=== PATIENT | male | born 1995 | race Two or more races ===

== ENCOUNTER 2016-11-15 00:10 | Emergency (ER) | payer OTHER ==
--- NOTE | 2016-11-15 01:59 | ER Document Report ---
ED General <LEXUS HELLER - Last Filed: 11/15/16 06:41> <MADDY TAVERAS - Last Filed: 11/15/16 11:57> - General Chief Complaint: Psych Problem Stated Complaint: PSYCH EVALUATION Notes: Patient is a 21-year-old male presents with complaint of suicidal ideations. He is been very depressed for a long time. He is currently in the [employer]. [place] Informed him that he needs to "suck it up" and not offering any further help. He continues to feel worse and therefore came to our ER for help. He denies any plan to hurt himself. He denies any attempts at hurting himself recently. He is on medications for depression since and not helping. Denies recent fevers or infections. No other complaints at this time. (LEXUS HELLER) - Related Data Allergies/Adverse Reactions: No Known Allergies Allergy (Unverified 11/15/16 00:53) Past Medical History - Social History Smoking Status: Current Some Day Smoker Frequency of alcohol use: Occasional Drug Abuse: None Family History: Reviewed & Not Pertinent Past Surgical History: Reports: Hx Orthopedic Surgery - Immunizations Hx Diphtheria, Pertussis, Tetanus Vaccination: Yes <LEXUS HELLER - Last Filed: 11/15/16 06:41> Review of Systems <LEXUS HELLER - Last Filed: 11/15/16 06:41> <MADDY TAVERAS - Last Filed: 11/15/16 11:57> - Review of Systems Notes: My Normal Review Basic REVIEW OF SYSTEMS: CONSTITUTIONAL : Denies fever, chills, or sweats. Denies recent illness. EENT: Denies eye, ear, throat, or mouth pain or symptoms. Denies nasal or sinus congestion. CARDIOVASCULAR: Denies chest pain. RESPIRATORY: Denies cough, cold, or chest congestion. Denies shortness of breath, difficulty breathing, or wheezing. GASTROINTESTINAL: Denies abdominal pain. Denies nausea, vomiting, or diarrhea. Denies constipation. Last BM: MUSCULOSKELETAL: Denies neck or back pain or joint pain or swelling. SKIN: Denies rash or skin lesions. NEUROLOGICAL: Denies altered mental status or loss of consciousness. Denies headache. Denies weakness or paralysis or loss of use of either side. Denies problems with gait or speech. Denies sensory or motor loss. PSYCHIATRIC: Severe depression. Suicidal ideations.. ALL OTHER SYSTEMS REVIEWED AND NEGATIVE. (LEXUS HELLER) Physical Exam <LEXUS HELLER - Last Filed: 11/15/16 06:41> <MADDY TAVERAS - Last Filed: 11/15/16 11:57> - Vital signs Vitals: Temp Pulse Resp BP Pulse Ox 98.6 F 74 16 133/57 H 97 11/15/16 00:52 11/15/16 00:52 11/15/16 00:52 11/15/16 00:52 11/15/16 00:52 (LEXUS HELLER) (MADDY TAVERAS) - Notes Notes: General Appearance: Well nourished, alert, cooperative, no acute distress, no obvious discomfort. Well-appearing Vitals: reviewed, See vital signs table. Head: no swelling or tenderness to the head Eyes: PERRL, EOMI, Conjuctiva clear Lungs: No wheezing, No rales, No rhonci, No accessory muscle use, good air exchange bilaterally. Heart: Normal rate, Regular rythm, No murmur, no rub Abdomen: Normal BS, soft, No rigidity, No abdominal tenderness, No guarding, no rebound, no abdominal masses, no organomegaly Extremities: strength 5/5 in all extremities, good pulses in all extremities, no swelling or tenderness in the extremities, no edema. Skin: warm, dry, appropriate color, no rash Neuro: speech clear, oriented x 3, normal affect, responds appropriately to questions. (LEXUS HELLER) Course - Laboratory Result Diagrams: 11/15/16 01:35 11/15/16 01:35 <LEXUS HELLER - Last Filed: 11/15/16 06:41> - Laboratory Result Diagrams: 11/15/16 01:35 11/15/16 01:35 <MADDY TAVERAS - Last Filed: 11/15/16 11:57> - Vital Signs Vital signs: Temp Pulse Resp BP Pulse Ox 97.8 F 71 18 134/72 H 99 11/15/16 07:52 11/15/16 07:52 11/15/16 07:52 11/15/16 07:52 11/15/16 07:52 (LEXUS HELLER) (MADDY TAVERAS) - Laboratory Laboratory results interpreted by me: 11/15/16 11/15/16 11/15/16 01:35 01:35 01:35 RBC 5.75 H Sodium 146.2 H Urine Blood SMALL H Salicylates < 1.0 L Acetaminophen < 10 L (MADDY TAVERAS) - EKG Interpretation by Me Additional EKG results interpreted by me: 11/15/16 01:58 EKG is reviewed and interpreted by me. EKG shows normal sinus rhythm with rate of [address] segment elevation or depression. No ischemic T wave inversions. MA level, QRS duration, QTC intervals are within normal range. No old EKG available for comparison. (LEXUS HELLER) - Transfer of Care Notes: 11/15/16 06:44 On exam patient he does appear very depressed. He has been otherwise appropriate and polite with me during his interview and exam. He does want help with his depression and suicidal thoughts. He is voluntary and therefore I will not place him on involuntary commit paperwork. Patient is medically stable for psychiatric evaluation. Dictation of this chart was performed using voice recognition software; therefore, there may be some unintended grammatical errors. (LEXUS HELLER) Discharge <LEXUS HELLER - Last Filed: 11/15/16 06:41> <MADDY TAVERAS - Last Filed: 11/15/16 11:57> - Discharge Clinical Impression: Post traumatic stress disorder (PTSD) Depression Qualifiers: Depression Type: unspecified Qualified Code(s): F32.9 - Major depressive disorder, single episode, unspecified Condition: Stable Disposition: PSYCH HOSP/UNIT Additional Instructions: PROCEED TO PSYCHIATRIC UNIT AT [facility].
[2016-11-15 02:10] LABS: ABSOLUTE EOSINOPHILS # (AUTO) 0.1 10^3/uL (0.0-0.6); ABSOLUTE LYMPHOCYTES (AUTO) 2.2 10^3/uL (0.5-4.7); ABSOLUTE MONOCYTES (AUTO) 0.6 10^3/uL (0.1-1.4); ABSOLUTE NEUT (AUTO) 3.8 10^3/uL (1.7-8.2); BASOPHILS % (AUTO) 0.6 % (0-2); EOSINOPHILS % (AUTO) 0.9 % (0-6); HEMATOCRIT 49.2 % (37.9-51.0); HEMOGLOBIN 16.6 g/dL (13.5-17.0); HGB HCT DIFFERENCE 0.6; LYMPHOCYTES % (AUTO) 32.6 % (13-45); MEAN CORPUSCULAR HEMOGLOBIN 28.8 pg (27.0-33.4); MEAN CORPUSCULAR HGB CONC 33.6 g/dL (32.0-36.0); MEAN CORPUSCULAR VOLUME 86 fl (80-97); MONOCYTES % (AUTO) 9.1 % (3-13); RED BLOOD COUNT 5.75 10^6/uL (4.35-5.55); RED CELL DISTRIBUTION WIDTH 13.6 % (11.5-14.0); SEGMENTED NEUTROPHILS % (AUTO) 56.8 % (42-78); WHITE BLOOD COUNT 6.8 10^3/uL (4.0-10.5)
[2016-11-15 02:11] LABS: APPEARANCE,URINE CLEAR; BILIRUBIN,URINE NEGATIVE (NEGATIVE); GLUCOSE, URINE NEGATIVE (NEGATIVE); KETONES,URINE NEGATIVE (NEGATIVE); LEUKOCYTE ESTERASE,URINE NEGATIVE (NEGATIVE); NITRITE,URINE NEGATIVE (NEGATIVE); PROTEIN,URINE NEGATIVE (NEGATIVE); URINE SPECIFIC GRAVITY 1.008; UROBILINOGEN,URINE NEGATIVE mg/dL (<2.0)
[2016-11-15 02:29] LABS: URINE BARBITURATES SCREEN NEGATIVE; URINE METHADONE SCREEN NEGATIVE; URINE OPIATES LOW NEGATIVE; URINE PHENCYCLIDINE SCREEN NEGATIVE
[2016-11-15 02:32] LABS: ALANINE AMINOTRANSFERASE 49 U/L (21-72); ALBUMIN 4.6 g/dL (3.5-5.0); ALCOHOL 92 mg/dL (NONE DETECTED); ALKALINE PHOSPHATASE 98 U/L (38-126); ANION GAP 15 (5-19); ASPARTATE AMINO TRANSFERASE 36 U/L (17-59); BILIRUBIN,TOTAL 0.7 mg/dL (0.2-1.3); BLOOD UREA NITROGEN 10 mg/dL (7-20); CARBON DIOXIDE 25 mmol/L (22-30); CHLORIDE 106 mmol/L (98-107); GLUCOSE 92 mg/dL (75-110); POTASSIUM 4.4 mmol/L (3.6-5.0); SODIUM 146.2 mmol/L (137-145); TOTAL PROTEIN 8.1 g/dL (6.3-8.2)
--- NOTE | 2016-11-15 09:26 | ER Document Report ---
Doctor's Note Notes: 11/15/16 09:24 Medical rounds: Chart reviewed and patient interviewed briefly. Patient denies somatic complaints except for chronic pain from a left shoulder injury and reconstruction. He is alert and oriented. He does exhibit depressed mood. Vital signs are normal. Laboratory values satisfactory. Patient is medically stable pending psychosocial evaluation and disposition.
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
--- NOTE | 2016-11-15 11:26 | EKG REPORT ---
SEVERITY:- NORMAL ECG - SINUS RHYTHM : Confirmed by: Ranjit العراقي 15-Nov-2016 11:25:00
[2016-11-15 13:38] VITALS: BP 136/78
== END 2016-11-15 13:35 ==
LOC: ER 00:10
DX: F32.9 Major depressive disorder, single episode, unspecified (principal); F43.10 Post-traumatic stress disorder, unspecified; R45.851 Suicidal ideations; M25.512 Pain in left shoulder; G89.29 Other chronic pain; S49.92XS Unspecified injury of left shoulder and upper arm, sequela; X58.XXXS Exposure to other specified factors, sequela; F17.200 Nicotine dependence, unspecified, uncomplicated; Z98.890 Other specified postprocedural states; Z79.899 Other long term (current) drug therapy
CPT/HCPCS: 36415; 80053; 80307; 81001; 85025; 93005; 93010; 99285